=== PATIENT | male | born 1965 | race Caucasian/White ===

== ENCOUNTER 2025-04-04 18:28 | Emergency (ER) | payer BC, SELFPAY ==
[2025-04-04 18:30] VITALS: BP 101/82
[2025-04-04 18:59] LABS: % Basophils 0.8 % (0-2); % Eosinophils 4.6 % (0-6); % Immature Granulocytes 0.3 % (0-0.5); % Lymphocytes 28.3 % (20.5-51.1); % Monocytes 13.1 % (1.7-9.3); % Neutrophils 52.9 % (42.2-75.2); Absolute Basophils 0.1 10^3/uL (0-0.2); Absolute Eosinophils 0.5 10^3/uL (0-0.7); Absolute Lymphocytes 3.2 10^3/uL (1.2-3.4); Absolute Monocytes 1.5 10^3/uL (0.1-0.6); Hematocrit 42.8 % (39.0-52.0); Hemoglobin 14.6 g/dL (13.0-18.0); Mean Corp Hgb Conc. 34.1 g/dL (33.0-37.0); Mean Corpuscular Hgb 31.8 pg (27.0-31.0); Mean Corpuscular Volume 93.2 fL (80.0-94.0); Mean Platelet Volume 9.7 fL (7.4-10.4); Nucleated Red Blood Cells % 0 % (-); Platelet Count 283 10^3/uL (130-400); Red Blood Cell Count 4.59 10^6/uL (4.70-6.10); Red Cell Dist. Width 13.4 % (11.5-14.5); White Blood Cell Count 11.4 10^3/uL (4.8-10.8)
[2025-04-04 19:09] LABS: INR 0.96; PT 13.1 Sec (11.4-14.6)
[2025-04-04 19:14] LABS: ALT (SGPT) 35 U/L (0-50); AST (SGOT) 31 U/L (17-59); Albumin 4.4 g/dl (3.5-5.0); Alkaline Phosphatase 64 U/L (38-126); Blood Urea Nitrogen 26 mg/dl (9-20); Calcium 9.5 mg/dl (8.4-10.2); Carbon Dioxide 28 mmol/L (22-30); Chloride 104 mmol/L (98-107); Glucose 122 mg/dl (70-99); Sodium 138 mmol/L (135-145); Total Bilirubin 0.8 mg/dl (0.2-1.3); eGFR > 60.00
[2025-04-04 19:27] LABS: Troponin I < 0.012 ng/ml
[2025-04-04] MEDS: PERCOCET 5/325 1 TABLET PO (20:18)
--- NOTE | 2025-04-04 20:30 | ED.GENMED ---
History of Present Illness
General
Chief Complaint: Skin Problem
Source: patient, spouse and family
Exam Limitations: none
Time Seen by Provider: 04/04/25 19:36
Nursing documentation reviewed up to this point in time: agreed with
History of Present Illness
History of Present Illness:
59-year-old male CAD with stents 6 months ago at [facility] on aspirin and Plavix bruising to his right shoulder down towards his antecubital fossa worse with movement better with rest he did reach out and grabbed an outlet a few days ago heard a pop,
no numbness or tingling, pain is mild, he is able to flex his biceps musculature
Past History
Past History
ED Past Medical History: CAD and HTN
Social History
Tobacco: Non-smoker
Alcohol: None
Drug: None
Personal:
Living: with family
Employment: Employed
Review of Systems
Review of Systems
All Other Systems: Not applicable
Constitutional: Denies fever or fatigue
EENT: Reports no symptoms
Respiratory: Reports no symptoms
Cardiac: Reports no symptoms
ABD/GI: Reports no symptoms
Musculoskeletal: Reports muscle pain and muscle stiffness
Neurological: Denies dizzy
Endocrine: Denies polyuria
Hematologic/Lymphatic: Reports bruising
Phy Exam
Physical Exam
Physical Exam:
Physical Exam
General: no apparent distress, not acutely ill
Neck: No jaundice
Heart: s1/s2 regular rate and rhythm, no murmur. equal radial pulses.
Lungs: no acute respiratory distress. clear bilaterally
Neuro: alert and oriented. no focal neurological deficits
Skin: no rash
Psychiatric: well kept. interactive and cooperative
Extremities: Bruising to his deltoid into his biceps on the right no obvious defect of his long or short head of the biceps muscle strength biceps appears intact strong radial pulse distally no crepitance no palpable cords
Course
Orders/Labs/Results
Orders:
Orders
04/04/25 18:33
EKG [Electrocardiogram (*1)] Urgent
Reason for Study: Other
Other Reason for Exam: shoulder pain
04/04/25 18:34
EKG- Treatment ONCE
04/04/25 18:51
Complete Blood Count/With Diff Urgent
Comprehensive Metabolic Panel Urgent
Prothrombin Time Urgent
Troponin I Urgent
04/04/25 19:36
CR Shoulder - Right Min 2 View Urgent
Comment:
Reason For Exam: Pain bruising
04/04/25 20:02
CT Angio Upper Ext W/Wo Iv Contrast [CT Upper Ext Angio W/wo Iv Con] Urgent
Comment:
Reason For Exam: right upper arm hematoma
Oxycodone/Acetaminophen [Percocet 5/325] 1 tablet PO NOW STA
04/04/25 21:21
Sling Right-Treatment ONCE
Abnormal Lab Results
04/04/25
18:51
WBC 11.4 H 10^3/uL
(4.8-10.8)
RBC 4.59 L 10^6/uL
(4.70-6.10)
MCH 31.8 H pg
(27.0-31.0)
Absolute Monos (auto) 1.5 H 10^3/uL
(0.1-0.6)
Monocytes % 13.1 H %
(1.7-9.3)
BUN 26 H mg/dl
(9-20)
Glucose 122 H mg/dl
(70-99)
04/04/25 18:51
04/04/25 18:51
Vital Signs
Initial and Last Documented VS:
Initial Vital Signs
Temp Pulse Resp BP Pulse Ox
98.2 F 74 18 101/82 98
04/04/25 18:30 04/04/25 18:30 04/04/25 18:30 04/04/25 18:30 04/04/25 18:30
Last Documented Vital Signs
Temp Pulse Resp BP Pulse Ox
98.2 F 74 18 153/90 100
04/04/25 18:30 04/04/25 18:30 04/04/25 18:30 04/04/25 21:18 04/04/25 21:20
MDM/Problems Addressed
Differential Diagnosis Includes:
Contusion hematoma arterial bleed occult trauma, no signs of compartment syndrome
MDM/Problems Addressed:
Bruising on his right humerus into the bicep
Chronic conditions affecting care:
Aspirin Plavix
Chronic conditions affecting care: CAD
Acute Exacerbation and/or Progression of Chronic Illness:
Aspirin Plavix
Acute Exacerbation and/or Progression of Chronic Illness: CAD
*Radiology
Radiology exam reviewed: radiology read reviewed
*Pulse Oximetry
Patient hypoxic: no
*EKG
Interpreted by ED Provider?: Yes
Interpretation: normal
Comparison EKG: no comparison EKG present
Heart Rate: 78
Rate: normal
Rhythm: sinus
Ischemia: no ischemia
*[employer] Interpretation
Rate: normal
Interpretation: normal
Heart Rate: 78
Rhythm: sinus
*Critical Care Note
Total Time (30-74mins, 75-104mins- exclusive of procedures): Not Applicable
Data Reviewed
Source: patient and spouse
Update Note
Update Note:
ct reviewed with radiology-no active bleeding
ED Attending Note
-
Portions of this chart may have been created with voice recognition software.� Occasional wrong word or��sound alike� substitutions may have occurred due to the inherent limitations of voice recognition software.
Discharge Plan
Departure
Patient Disposition: Home (Routine Discharge)
Date of Disposition: 04/04/25
Time of Disposition: 21:56
Patient with high blood pressure during this ER visit?: No
Condition: Good
Discharge Problem:
Hematoma
Instructions: Hematoma, Taking care of bruises
Prescriptions:
New
oxycodone-acetaminophen [Percocet] 5-325 mg tablet
1 tab PO Q6HPRN PRN (Reason: pain) Qty: 14 0RF
No Action
amlodipine 5 MG tablet
5 mg PO DAILY
Referrals:
UNKNOWN - PT DOES,NOT KNOW [Family Provider] -
Interventions
Interventions:
*Risk Screen - Suicide Last Done: 04/04/25 18:33
*General Assessment Last Done: 04/04/25 18:33
*Neglect/Abuse Screening Last Done: 04/04/25 18:33
*ED COVID-19 Vaccine History Last Done: 04/04/25 18:33
ED-Skin Assessment Last Done: 04/04/25 20:00
Discharge Date and Time
Print Language: [place]
[2025-04-04 21:18] VITALS: BP 153/90
== END 2025-04-04 22:10 | disposition home or self-care (01) ==
LOC: EMR 18:28
PROVIDERS: Emergency Medicine; EMERGENCY PHYSICIAN Emergency Medicine
DX: S40.011A Contusion of right shoulder, initial encounter (principal); X58.XXXA Exposure to other specified factors, initial encounter; I25.10 Atherosclerotic heart disease of native coronary artery without angina pectoris; I10 Essential (primary) hypertension; Z95.5 Presence of coronary angioplasty implant and graft; Z79.02 Long term (current) use of antithrombotics/antiplatelets
CPT/HCPCS: 99285; 73030; 73206; 80053; 84484; 85025; 85610; 93005; Q9967